=== PATIENT | female | born 1945 | race Caucasian/White ===

== ENCOUNTER 2023-01-22 18:19 | Inpatient (IN) | payer MEDICARE ==
[~2023-01-22] VITALS: Ht 175.3 cm; Wt 59.0 kg
[2023-01-22 19:53] LABS: BASOPHILS # (AUTO) 0.1 K/uL (0.0-0.2); BASOPHILS % (AUTO) 0.8 % (0.0-2.0); EOSINOPHILS # (AUTO) 0.2 K/uL (0.0-0.7); EOSINOPHILS % (AUTO) 1.8 % (0.0-6.0); HEMATOCRIT 39 % (33-45); HEMOGLOBIN 12.5 g/dL (11.5-14.8); LYMPHOCYTES # (AUTO) 2.2 K/uL (0.8-4.8); LYMPHOCYTES % (AUTO) 23.7 % (20.0-44.0); MEAN CORPUSCULAR HEMOGLOBIN 29 PG (26.0-33.0); MEAN CORPUSCULAR HGB CONC 32 g/dl (31.0-36.0); MEAN CORPUSCULAR VOLUME 91 fL (82-100); MONOCYTES # (AUTO) 0.7 K/uL (0.1-1.30); MONOCYTES % (AUTO) 7.7 % (2.0-12.0); NEUTROPHILS # (AUTO) 6.2 K/uL (1.8-8.9); PLATELET COUNT (AUTO) 306 K/uL (150-450); RED BLOOD CELL COUNT(AUTO) 4.28 MIL/uL (4.0-5.2); RED CELL DISTRIBUTION WIDTH 15.6 % (11.5-15.0); WHITE BLOOD COUNT (AUTO) 9.4 K/uL (4.3-11.0)
[2023-01-22 19:54] LABS: APPEARANCE,URINE SLIGHTLY CLOUDY (CLEAR); BILIRUBIN,URINE NEGATIVE (NEGATIVE); BLOOD, URINE NEGATIVE Ery/uL (NEGATIVE); COLOR,URINE YELLOW (YELLOW); KETONES,URINE NEGATIVE (NEGATIVE); LEUKOCYTE ESTERASE ,URINE 2+ (NEGATIVE); NITRITE, URINE POSITIVE (NEGATIVE); PROTEIN,URINE NEGATIVE (NEGATIVE); UGLUCOSE NEGATIVE (NEGATIVE); UROBILINOGEN,URINE 0.2 EU/dL (0.2)
[2023-01-22 20:11] LABS: CALCIUM, SERUM 9.1 mg/dL (8.5-10.1); CARBON DIOXIDE 25 mmol/L (21-32); CHLORIDE 106 mmol/L (98-107); CREATININE 0.9 mg/dL (0.6-1.3); GLUCOSE 93 mg/dL (74-106); POTASSIUM 3.2 mmol/L (3.5-5.1); SODIUM SERUM 141 mmol/L (136-145); UREA NITROGEN, BLOOD 17 mg/dL (7-18)
[2023-01-22 20:12] LABS: AMPHETAMINE, URINE NEGATIVE (NEGATIVE); BARBITURATE, URINE NEGATIVE (NEGATIVE); BENZODIAZEPINE, URINE NEGATIVE (NEGATIVE); CANNABINOID, URINE NEGATIVE (NEGATIVE); COCCAINE, URINE NEGATIVE (NEGATIVE); OPIATE, URINE NEGATIVE (NEGATIVE); PHENCYCLIDINE SCREEN,URINE NEGATIVE (NEGATIVE)
[2023-01-22 20:17] LABS: ALANINE AMINOTRANSFERASE 19 U/L (12-78); ALKALINE PHOSPHATASE 70 U/L (46-116); ASPARTATE AMINOTRANSFERASE 19 U/L (15-37); BILIRUBIN,DIRECT 0.1 mg/dL (0.0-0.2); BILIRUBIN,TOTAL 0.3 mg/dL (0.2-1.0); LIPASE 124 U/L (73-393); TOTAL PROTEIN, SERUM 6.4 g/dL (6.4-8.2)
[2023-01-22 20:21] LABS: ADD URINE CULTURE YES; BACTERIA,URINE Many /HPF (None Seen); RBC,URINE NONE SEEN /HPF (0-2); SQUAMOUS EPITHELIAL CELL,UR Moderate /HPF (None Seen)
[2023-01-22] MEDS ORDERED: CEFTRIAXONE 1GM BAG (ER ONLY) 50 ML IV ONE (21:11)
[2023-01-22] MEDS ORDERED: CEPHALEXIN MONOHYDRATE 500 MG CAPSULE PO ONE (21:11)
[2023-01-22] MEDS: CEPHALEXIN MONOHYDRATE 500 MG CAPSULE PO SCH (21:15)
[2023-01-22] MEDS ORDERED: CEFTRIAXONE 1GM BAG (ER ONLY) 1 GM/50 ML PIGGYBACK IV ONE (21:30)
[2023-01-23 05:51] VITALS: O2SAT 96
[2023-01-23] MEDS ORDERED: clonazePAM 0.5 MG TABLET PO PRN (08:00)
[2023-01-23] MEDS ORDERED: MAGNESIUM HYDROXIDE 30 ML UDC PO PRN (08:00)
[2023-01-23] MEDS: MAG HYDROX/AL HYDROX/SIMETH 30 ML UDC PO PRN (10:26)
[2023-01-23] MEDS: OLANZAPINE 5 MG TABLET PO SCH ×2 (10:26→17:04)
[2023-01-23 16:00] VITALS: BP 95/60; TEMP 98.1; O2SAT 98
[2023-01-23] MEDS: CEPHALEXIN MONOHYDRATE 500 MG CAPSULE PO SCH (17:04)
[2023-01-23 20:00] VITALS: BP 99/68; TEMP 97.6; O2SAT 97
[2023-01-24 08:00] VITALS: BP 107/78; TEMP 98.1; O2SAT 98
[2023-01-24 08:04] LABS: ALANINE AMINOTRANSFERASE 15 U/L (12-78); ALBUMIN 2.6 g/dL (3.4-5.0); ALKALINE PHOSPHATASE 66 U/L (46-116); ASPARTATE AMINOTRANSFERASE 15 U/L (15-37); BILIRUBIN,TOTAL 0.3 mg/dL (0.2-1.0); CALCIUM, SERUM 8.6 mg/dL (8.5-10.1); CARBON DIOXIDE 22 mmol/L (21-32); CHLORIDE 112 mmol/L (98-107); CHOLESTEROL 196 mg/dL (<200); CREATININE 0.9 mg/dL (0.6-1.3); GLUCOSE 90 mg/dL (74-106); HDL CHOLESTEROL 41 mg/dL (40-60); LDL 124 mg/dL (0-99); POTASSIUM 3.7 mmol/L (3.5-5.1); SODIUM SERUM 144 mmol/L (136-145); TRIGLYCERIDES 167 mg/dL (30-150); UREA NITROGEN, BLOOD 15 mg/dL (7-18)
[2023-01-24] MEDS: OLANZAPINE 5 MG TABLET PO SCH ×2 (08:35→16:15)
[2023-01-24] MEDS: CEPHALEXIN MONOHYDRATE 500 MG CAPSULE PO SCH ×2 (08:35→16:15)
[2023-01-24] MEDS: ACETAMINOPHEN 325 MG TABLET PO PRN ×2 (08:38→19:02)
[2023-01-24 16:00] VITALS: BP 100/77; TEMP 98.3; O2SAT 96
[2023-01-24 20:02] VITALS: BP 101/56; TEMP 98.6; O2SAT 95
[2023-01-24 21:00] VITALS: BP 109/68; TEMP 98; O2SAT 98
[2023-01-25 08:00] VITALS: BP 125/96; TEMP 98; O2SAT 98
[2023-01-25] MEDS: OLANZAPINE 5 MG TABLET PO SCH ×3 (08:23→23:05)
[2023-01-25] MEDS: ACETAMINOPHEN 325 MG TABLET PO PRN ×2 (08:23→15:31)
[2023-01-25] MEDS: CEPHALEXIN MONOHYDRATE 500 MG CAPSULE PO SCH (08:23)
[2023-01-25 16:00] VITALS: BP 153/81; TEMP 98; O2SAT 100
[2023-01-25 20:00] VITALS: BP 131/91; TEMP 97.5; O2SAT 98
[2023-01-26 08:00] VITALS: BP 95/64; TEMP 97.8; O2SAT 94
[2023-01-26] MEDS: OLANZAPINE 5 MG TABLET PO SCH ×2 (08:07→21:57)
[2023-01-26] MEDS: ACETAMINOPHEN 325 MG TABLET PO PRN (08:07)
[2023-01-26 16:00] VITALS: BP 95/68; TEMP 97.9; O2SAT 93
[2023-01-26 20:00] VITALS: BP 97/73; TEMP 97.6; O2SAT 97
[2023-01-27 08:00] VITALS: BP 108/80; TEMP 98.1; O2SAT 95
[2023-01-27] MEDS: OLANZAPINE 5 MG TABLET PO SCH ×2 (08:31→21:31)
[2023-01-27] MEDS: ACETAMINOPHEN 325 MG TABLET PO PRN (09:51)
[2023-01-27 17:01] VITALS: BP 112/73; TEMP 97.9; O2SAT 87
[2023-01-27 20:00] VITALS: BP 98/54; TEMP 97.9; O2SAT 95
[2023-01-28 08:00] VITALS: BP 103/70; TEMP 97.9; O2SAT 97
[2023-01-28] MEDS: OLANZAPINE 5 MG TABLET PO SCH ×2 (09:11→21:08)
[2023-01-28] MEDS: DIPHENOXYLATE HCL/ATROP SULF 1 UDTAB TABLET PO PRN (09:12)
[2023-01-28 16:00] VITALS: BP 113/65; TEMP 98.7; O2SAT 96
[2023-01-28] MEDS: ACETAMINOPHEN 325 MG TABLET PO PRN (18:19)
[2023-01-28 20:51] VITALS: BP 100/56; TEMP 98.2; O2SAT 95
[2023-01-29 08:00] VITALS: BP 97/80; TEMP 98; O2SAT 98
[2023-01-29] MEDS: OLANZAPINE 5 MG TABLET PO SCH ×2 (08:29→21:37)
[2023-01-29] MEDS: ACETAMINOPHEN 325 MG TABLET PO PRN (08:31)
[2023-01-29 16:00] VITALS: BP 100/76; TEMP 98.7; O2SAT 94
[2023-01-29 20:33] VITALS: BP 110/75; TEMP 98.2; O2SAT 97
[2023-01-29] MEDS: TEMAZEPAM 7.5 MG CAPSULE PO PRN (22:07)
[2023-01-30 08:00] VITALS: BP 100/61; TEMP 97.9; O2SAT 96
[2023-01-30] MEDS: OLANZAPINE 5 MG TABLET PO SCH ×2 (09:21→22:00)
[2023-01-30] MEDS: ACETAMINOPHEN 325 MG TABLET PO PRN (09:26)
[2023-01-30 16:00] VITALS: BP 108/89; TEMP 97.7; O2SAT 97
[2023-01-30] MEDS: MAG HYDROX/AL HYDROX/SIMETH 30 ML UDC PO PRN (19:44)
[2023-01-30 21:07] VITALS: BP 90/57; TEMP 98.2; O2SAT 98
[2023-01-31 08:00] VITALS: BP 109/57; TEMP 97.9; O2SAT 96
[2023-01-31] MEDS: ACETAMINOPHEN 325 MG TABLET PO PRN (08:42)
[2023-01-31] MEDS: OLANZAPINE 5 MG TABLET PO SCH ×2 (08:42→22:00)
[2023-01-31] MEDS: DIPHENOXYLATE HCL/ATROP SULF 1 UDTAB TABLET PO PRN (09:59)
[2023-01-31 16:00] VITALS: BP 94/74; TEMP 98.1; O2SAT 98
[2023-01-31 20:00] VITALS: BP 89/66; TEMP 97.6; O2SAT 97
[2023-01-31] MEDS: MAG HYDROX/AL HYDROX/SIMETH 30 ML UDC PO PRN (22:01)
[2023-02-01 08:00] VITALS: BP 118/73; TEMP 98.1; O2SAT 94
[2023-02-01] MEDS: OLANZAPINE 5 MG TABLET PO SCH ×2 (08:22→21:30)
[2023-02-01] MEDS: ACETAMINOPHEN 325 MG TABLET PO PRN ×2 (08:27→19:53)
[2023-02-01 16:00] VITALS: BP 121/75; TEMP 98; O2SAT 98
[2023-02-01 21:29] VITALS: BP 71/58; TEMP 98.6; O2SAT 95
[2023-02-02] MEDS ORDERED: IBUPROFEN 400 MG TABLET PO ONE (04:15)
[2023-02-02 08:00] VITALS: BP 93/61; TEMP 98.2; O2SAT 97
[2023-02-02] MEDS: ACETAMINOPHEN 325 MG TABLET PO PRN (08:10)
[2023-02-02] MEDS: OLANZAPINE 5 MG TABLET PO SCH ×2 (08:20→21:06)
[2023-02-02 16:00] VITALS: BP 128/72; TEMP 98.4; O2SAT 96
[2023-02-02 20:00] VITALS: BP 99/65; TEMP 98.4; O2SAT 95
[2023-02-02 20:56] VITALS: BP 115/83; O2SAT 98
[2023-02-03 08:00] VITALS: BP 94/61; TEMP 97.7; O2SAT 96
[2023-02-03] MEDS: OLANZAPINE 5 MG TABLET PO SCH ×2 (08:46→21:17)
[2023-02-03] MEDS: ACETAMINOPHEN 325 MG TABLET PO PRN (09:20)
[2023-02-03] MEDS: DIPHENOXYLATE HCL/ATROP SULF 1 UDTAB TABLET PO PRN (10:56)
[2023-02-03 16:00] VITALS: BP 98/75; TEMP 97.7; O2SAT 95
[2023-02-04 08:00] VITALS: BP 112/79; TEMP 98.8; O2SAT 94
[2023-02-04] MEDS: OLANZAPINE 5 MG TABLET PO SCH ×3 (09:16→21:39)
[2023-02-04] MEDS: ACETAMINOPHEN 325 MG TABLET PO PRN ×2 (14:46→21:44)
[2023-02-04 16:00] VITALS: BP 121/89; TEMP 97.5; O2SAT 98
[2023-02-04 21:17] VITALS: BP 130/82; TEMP 98.4; O2SAT 97
[2023-02-05] MEDS: TEMAZEPAM 7.5 MG CAPSULE PO PRN (02:05)
[2023-02-05 08:00] VITALS: BP 127/87; TEMP 97.6; O2SAT 98
[2023-02-05] MEDS: OLANZAPINE 5 MG TABLET PO SCH (09:42)
== END 2023-02-05 15:10 | DRG 885 ==
LOC: ER 18:24 → GPS 01-23 05:34
PROVIDERS: ADMIT Nurse Practitioner Psychiatric/Mental Health
DX: F29 Unspecified psychosis not due to a substance or known physiological condition (principal); G93.41 Metabolic encephalopathy; F02.82 Dementia in other diseases classified elsewhere, unspecified severity, with psychotic disturbance; N39.0 Urinary tract infection, site not specified; Z59.01 Sheltered homelessness; Z73.6 Limitation of activities due to disability; G30.9 Alzheimer's disease, unspecified; B96.20 Unspecified Escherichia coli [E. coli] as the cause of diseases classified elsewhere
CPT/HCPCS: 36415; 80048-TC; 80053-TC; 80061-TC; 80076-TC; 81001; 83690-TC; 85025-TC; 87081-TC; 87086-TC; 97110-TC; 97116-TC; C9803; G0480; J0696